=== PATIENT | male | born 1975 | race Two or more races ===

== ENCOUNTER → 2016-06-30 | Outpatient (CLI) | payer BC ==
[~2016-06-30] MED LIST: IOHEXOL 350 MG/ML 100ML IJ ONE; METOPROLOL TARTRATE 1MG/1ML-5ML VIAL IV ONE; NITROGLYCERIN 0.4 MG SL TAB SL ONE
== END | disposition home or self-care (01) ==
LOC: CT 12:55
PROVIDERS: ATTEND Internal Medicine
DX: I25.10 Atherosclerotic heart disease of native coronary artery without angina pectoris (principal)
CPT/HCPCS: 75574; Q9967

== ENCOUNTER 2016-07-03 08:19 | Inpatient (IN) | payer BC ==
[~2016-07-03] VITALS: Ht 172.7 cm; Wt 71.4 kg
[~2016-07-03 08:19] MED LIST changes: +IODIXANOL 320MG/ML 100ML BTL IV ONE; -IOHEXOL 350 MG/ML 100ML IJ ONE; +LIDOCAINE 2%HCL (LOCAL ANESTH.) INJ 20ML MDV ONE; -METOPROLOL TARTRATE 1MG/1ML-5ML VIAL IV ONE; -NITROGLYCERIN 0.4 MG SL TAB SL ONE
[2016-07-03] MEDS ORDERED: ANGIOMAX 250 MG VIAL IV ONE (09:30)
[2016-07-03] MEDS ORDERED: SODIUM CHL 0.9% 50 ML ONE (09:30)
[2016-07-03] MEDS ORDERED: fentaNYL CITRATE 100 MCG/2 ML VL ONE (09:30)
[2016-07-03] MEDS ORDERED: EPTIFIBATIDE INJ (2MG/ML) 10ML VIAL IV ONE (09:30)
[2016-07-03] MEDS ORDERED: VERAPAMIL 2.5MG/ML INJ 2ML VIAL IV ONE (09:30)
[2016-07-03] MEDS ORDERED: MIDAZOLAM HCL 1MG/1ML-2 ML VIAL ONE ×2 (09:30→09:54)
[2016-07-03] MEDS ORDERED: PRASUGREL HCL 10 MG TAB ONE (09:57)
[2016-07-03] MEDS ORDERED: ASPirin 81 mg TAB ONE (09:58)
[2016-07-03] MEDS ORDERED: ADENOSINE 90 MG/30 ML INJ IV ONE (10:33)
[2016-07-03] MEDS ORDERED: SODIUM CHLORIDE 0.9% 1,000 ML IV SCH ×2 (12:09→12:28)
[2016-07-03] MEDS ORDERED: NITROGLYCERIN 0.4 MG SL TAB SL PRN ×2 (12:15→12:30)
[2016-07-03] MEDS ORDERED: MORPHINE SULF INJ 2 MG/ML SYRINGE 1ML IV PRN ×2 (12:15→12:30)
[2016-07-03] MEDS ORDERED: ACETAMINOPHEN 500 MG TAB PO PRN (12:30)
[2016-07-03] MEDS ORDERED: LORazepam 0.5 MG TAB PO PRN (12:30)
[2016-07-03] MEDS ORDERED: PRAS10TA6 PO (13:00)
[2016-07-03 13:20] VITALS: BP 114/82
[2016-07-03] MEDS ORDERED: ROSU10TA16 PO (13:34)
[2016-07-03 17:00] VITALS: BP 122/70
[2016-07-03] MEDS ORDERED: ASPI81TA27 PO (18:12)
[2016-07-03 20:00] VITALS: BP 129/86
[2016-07-03 21:51] VITALS: BP 129/86
[2016-07-03] MEDS ORDERED: ATORVASTATIN 20 MG TAB PO SCH ×2 (22:00)
[2016-07-04 05:00] VITALS: BP 123/78
[2016-07-04 07:45] LABS: Albumin 4.1 g/dL (3.4-5.0); Bilirubin, Direct 0.2 mg/dL (0-0.2); Bilirubin, Total 0.6 mg/dL (0.2-1.0); Total Protein 7.2 g/dL (6.4-8.2)
[2016-07-04] MEDS ORDERED: [UNRECOGNIZED DRUG - CODE] PO (08:53)
[2016-07-04 09:00] VITALS: BP 121/69
[2016-07-04] MEDS ORDERED: PRASUGREL HCL 10 MG TAB PO SCH (10:00)
[2016-07-04] MEDS ORDERED: ASPirin 81 mg TAB PO SCH (10:00)
[2016-07-04 10:33] VITALS: BP 121/69
[2016-07-04 13:00] VITALS: BP 121/69
== END 2016-07-04 13:10 | disposition home or self-care (01) | DRG 247 ==
LOC: CATH 08:19 → TELE-WESTW 08:20
PROVIDERS: ADMIT Internal Medicine; ATTEND Internal Medicine
PROC: 027034Z Dilation of Coronary Artery, One Artery with Drug-eluting Intraluminal Device, Percutaneous Approach (ICD-10-PCS; principal; 2016-07-03)
PROC: 4A023N7 Measurement of Cardiac Sampling and Pressure, Left Heart, Percutaneous Approach (ICD-10-PCS; 2016-07-03)
PROC: B2111ZZ Fluoroscopy of Multiple Coronary Arteries using Low Osmolar Contrast (ICD-10-PCS; 2016-07-03)
PROC: 4A033BC Measurement of Arterial Pressure, Coronary, Percutaneous Approach (ICD-10-PCS; 2016-07-03)
DX: I25.10 Atherosclerotic heart disease of native coronary artery without angina pectoris (principal); E78.00 Pure hypercholesterolemia, unspecified; E78.5 Hyperlipidemia, unspecified; Z82.49 Family history of ischemic heart disease and other diseases of the circulatory system; Z79.899 Other long term (current) drug therapy
CPT/HCPCS: 36415; 80061; 80076; 82306; 82565; 83036; 83695; 84484; 86141; 92928; 93005; 93458; 93571; C1887; J0153; J2250; Q9967